=== PATIENT | male | born 1965 | race Caucasian/White ===

== ENCOUNTER 2024-01-12 10:53 | Emergency (ER) | payer BC, SELFPAY ==
[2024-01-12 10:56] VITALS: BP 157/91
--- NOTE | 2024-01-12 11:29 | ED.GENMED ---
History of Present Illness
General
Chief Complaint: Skin Problem
Time Seen by Provider: 01/12/24 11:29
History of Present Illness
History of Present Illness:
HPI: The patient presents with concerns of a rash to the left side of the forehead. He recently bought a hat and since then he has developed 3 small pimples at the level of the hatband line on the left side of his forehead. He denies any fevers or
myalgias or any other systemic symptoms. He was concerned about the possibly monkeypox.
EXAM:
GENERAL: Well appearing in no distress
HEENT: Moist oral mucosa
NEUROLOGIC: Excellent strength all extremities, no obvious coordination deficits
PSYCHIATRIC: Appropriate mental status, normal insight and judgement
EXTREMITIES: Nontender, no edema, moves all extremities equally
SKIN: The patient has 3 pustules noted to the left side of the forehead
TIME OF INITIAL ENCOUNTER: 11:30 AM
NUMBER AND COMPLEXITY OF PROBLEMS ADDRESSED AT THE ENCOUNTER
� Chronic conditions affecting care: Eye surgery
� Acute Exacerbation and/or Progression of Chronic Illness: This is an acute problem
� Differential Diagnosis includes: Viral rash, folliculitis, no evidence for cellulitis
AMOUNT AND/OR COMPLEXITY OF DATA TO BE REVIEWED AND ANALYZED
� I performed an independent evaluation of and my interpretation is:
EKG:
CT:
X-rays:
Laboratory Studies:
Other:
� Review of other/old records:
� Clinical information was obtained by an independent historian:
� Prescriptions/Medications Considered but not given:
� Further testing considered but not performed: No indication for testing at this time
RISK OF COMPLICATIONS AND/OR MORBIDITY OR MORTALITY OF PATIENT MANAGEMENT
� Social determinants of health affecting care: Lives at home
� Discussion with other providers:
� Escalation of care including admission/observation vs risk of discharge considered: Although the patient had some concern for monkeypox he has no systemic symptoms therefore doubt case of monkeypox or other viral illness. I
suspect more of a folliculitis related to the new hat use.
Phy Exam
Physical Exam
Physical Exam:
See HPI
Course
Vital Signs
Initial and Last Documented VS:
Initial Vital Signs
Temp Pulse Resp BP Pulse Ox
98 F 70 16 157/91 98
01/12/24 10:56 01/12/24 10:56 01/12/24 10:56 01/12/24 10:56 01/12/24 10:56
Last Documented Vital Signs
Temp Pulse Resp BP Pulse Ox
98 F 70 16 157/91 98
01/12/24 10:56 01/12/24 10:56 01/12/24 10:56 01/12/24 10:56 01/12/24 10:56
*Critical Care Note
Total Time (30-74mins, 75-104mins- exclusive of procedures): Not Applicable
ED Attending Note
-
Portions of this chart may have been created with voice recognition software.� Occasional wrong word or��sound alike� substitutions may have occurred due to the inherent limitations of voice recognition software.
Discharge Plan
Departure
Patient Disposition: Home (Routine Discharge)
Date of Disposition: 01/12/24
Time of Disposition: 11:41
Patient with high blood pressure during this ER visit?: Yes
Discharge Problem:
Folliculitis
Instructions: Bacterial Folliculitis (DC), BLOOD PRESSURE
Referrals:
UNKNOWN - PT DOES,NOT KNOW [Family Provider] -
Activity Restrictions/Additional Instructions:
I recommend trying warm compresses to the affected area. In the absence of any other symptoms such as fevers or muscle aches, I feel that monkeypox or other more serious etiology is unlikely. Return here if worse. I recommend keeping the hat off.
Interventions
Interventions:
*Risk Screen - Suicide Last Done: 01/12/24 10:56
*General Assessment Last Done: 01/12/24 10:56
*Neglect/Abuse Screening Last Done: 01/12/24 10:56
ED-Skin Assessment Last Done: 01/12/24 11:12
Discharge Date and Time
Print Language: [id number]
== END 2024-01-12 11:56 | disposition home or self-care (01) ==
LOC: EMR 10:53
PROVIDERS: EMERGENCY PHYSICIAN Emergency Medicine
DX: L73.9 Follicular disorder, unspecified (principal); R03.0 Elevated blood-pressure reading, without diagnosis of hypertension
CPT/HCPCS: 99282